=== PATIENT | male | born 1955 | race Hispanic/Latino ===

== ENCOUNTER 2021-05-24 14:53 | Emergency (ER) | payer SELFPAY ==
[~2021-05-24] VITALS: Ht 167.6 cm; Wt 77.1 kg
[2021-05-24 14:57] VITALS: BP 132/65
[2021-05-24] MEDS ORDERED: AMOX/CLAV 875/125MG TAB PO ONE (15:30)
[2021-05-24 15:46] LABS: BASOPHILS % (AUTO) 0.7 % (0.0-5.0); EOSINOPHILS % (AUTO) 6.1 % (0.0-8.0); HEMATOCRIT 43.6 % (42-54); LYMPHOCYTES % (AUTO) 31.6 % (21.0-51.0); MEAN CORPUSCULAR HEMOGLOBIN 28.4 pg (27.0-33.0); MEAN CORPUSCULAR HGB CONC 33.3 g/dL (32.0-36.0); MEAN CORPUSCULAR VOLUME 85.3 fL (79-99); MONOCYTES % (AUTO) 10.4 % (3.0-13.0); PLATELET COUNT (AUTO) 302 K/uL (130-400); RED BLOOD CELL COUNT(AUTO) 5.11 MIL/uL (4.50-6.20); RED CELL DISTRIBUTION WIDTH 13.4 % (11.0-15.5); WHITE BLOOD COUNT (AUTO) 5.6 K/uL (4.8-10.8)
[2021-05-24] MEDS ORDERED: ACETAMINOPHEN 500 MG TABLET PO ONE (16:00)
[2021-05-24 16:03] LABS: POTASSIUM 3.7 mmol/L (3.5-5.1)
[2021-05-24 16:04] LABS: ALBUMIN 3.8 g/dL (3.5-5.0); BILIRUBIN,TOTAL 0.4 mg/dL (0.2-1.0); TOTAL PROTEIN, SERUM 8.1 g/dL (6.0-8.3)
[2021-05-24] MEDS ORDERED: AMOX-429 PO (16:14)
[2021-05-24] MEDS ORDERED: ACET-2247 PO (16:14)
== END 2021-05-24 16:37 | disposition home or self-care (01) ==
LOC: EDH 14:53
DX: R59.0 Localized enlarged lymph nodes (principal)
CPT/HCPCS: 36415; 71045; 80053; 85025; 86140; 86308

== ENCOUNTER 2024-04-14 06:54 | Day surgery (SDC) | payer OTHER ==
[2024-04-13 13:24] VITALS: BP 105/77; PULSE 63; RESP 19; TEMP 97.6
[2024-04-13 13:25] LABS: BASOPHILS # (AUTO) 0.04 K/uL (0.00-0.20); BASOPHILS % (AUTO) 0.7 % (0.0-5.0); EOSINOPHILS # (AUTO) 0.22 K/uL (0.00-0.70); EOSINOPHILS % (AUTO) 3.8 % (0.0-8.0); HEMATOCRIT 41.4 % (42-54); IMMATURE GRANULOCYTE ABSOLUTE 0.02 K/uL (0-1); LYMPHOCYTES # (AUTO) 1.7 K/uL (1.0-4.8); LYMPHOCYTES % (AUTO) 29.8 % (21.0-51.0); MEAN CORPUSCULAR HEMOGLOBIN 29.6 pg (27.0-33.0); MEAN CORPUSCULAR HGB CONC 33.3 g/dL (32.0-36.0); MEAN CORPUSCULAR VOLUME 88.7 fL (79-99); MONOCYTES # (AUTO) 0.7 K/uL (0.1-1.0); MONOCYTES % (AUTO) 11.6 % (3.0-13.0); NEUTROPHILS # (AUTO) 3.1 K/uL (1.8-7.7); NEUTROPHILS % (AUTO) 53.8 % (40.0-77.0); PLATELET COUNT (AUTO) 306 K/uL (130-400); RED BLOOD CELL COUNT(AUTO) 4.67 MIL/uL (4.50-6.20); RED CELL DISTRIBUTION WIDTH 13.6 % (11.0-15.5); WHITE BLOOD COUNT (AUTO) 5.8 K/uL (4.8-10.8)
[2024-04-13 13:28] LABS: CREATININE 1.1 mg/dL (0.5-1.3)
[2024-04-13 13:33] LABS: INR 1.04 (0.85-1.15); PROTHROMBIN TIME 11.2 SEC (9.6-11.6)
[2024-04-13 13:35] LABS: PARTIAL THROMBOPLASTIN TIME 32.2 SEC (26.3-35.5)
[2024-04-14] VITALS (17 sets, daily range): BP systolic 94–126; BP diastolic 58–94; PULSE 45–71; RESP 14–18; TEMP 97.4–97.9
[~2024-04-14] VITALS: Ht 165.1 cm; Wt 82.8 kg
[~2024-04-14 06:54] MED LIST: ATOR10TA69 PO; BETA1TAB20 PO; LOSA25TA41 PO; METO-391 PO; RIVA20TA PO
[2024-04-14] MEDS: 0.9%NACL 1000ML 1,000 ML IV ONE (09:01)
[2024-04-14] MEDS: MIDAZOLAM HCL 1 MG/ML 2ML VIAL IVP ONE (09:54)
[2024-04-14] MEDS: FENTanyl CITRate PF 50 MCG/1 ML 2ML VIAL IVP ONE (09:54)
== END 2024-04-14 12:15 | disposition home or self-care (01) ==
LOC: DAH 06:54
PROVIDERS: ATTEND Internal Medicine Cardiovascular Disease
DX: I48.91 Unspecified atrial fibrillation (principal); I42.8 Other cardiomyopathies; I10 Essential (primary) hypertension; Z83.3 Family history of diabetes mellitus; Z79.01 Long term (current) use of anticoagulants; Z79.899 Other long term (current) drug therapy
CPT/HCPCS: 80048; 85025; 85610; 85730; 36415; 92960; 93005 ×2; J3010; J7030; J2250; A4615; A4215; A4223 ×3; A7002; A4222; A4221; A4663; A4216; A4606; 99152; G0500

== ENCOUNTER 2024-05-24 06:18 | Day surgery (SDC) | payer OTHER, MEDICARE ==
[2024-05-22 10:45] LABS: BASOPHILS # (AUTO) 0.04 K/uL (0.00-0.20); BASOPHILS % (AUTO) 0.8 % (0.0-5.0); EOSINOPHILS # (AUTO) 0.28 K/uL (0.00-0.70); EOSINOPHILS % (AUTO) 5.8 % (0.0-8.0); HEMATOCRIT 44.1 % (42-54); IMMATURE GRANULOCYTE ABSOLUTE 0.02 K/uL (0-1); LYMPHOCYTES # (AUTO) 1.2 K/uL (1.0-4.8); LYMPHOCYTES % (AUTO) 24.6 % (21.0-51.0); MEAN CORPUSCULAR HEMOGLOBIN 29.4 pg (27.0-33.0); MEAN CORPUSCULAR HGB CONC 32.7 g/dL (32.0-36.0); MEAN CORPUSCULAR VOLUME 90.2 fL (79-99); MONOCYTES # (AUTO) 0.4 K/uL (0.1-1.0); MONOCYTES % (AUTO) 8.5 % (3.0-13.0); NEUTROPHILS # (AUTO) 2.9 K/uL (1.8-7.7); NEUTROPHILS % (AUTO) 59.9 % (40.0-77.0); PLATELET COUNT (AUTO) 282 K/uL (130-400); RED BLOOD CELL COUNT(AUTO) 4.89 MIL/uL (4.50-6.20); RED CELL DISTRIBUTION WIDTH 13.6 % (11.0-15.5); WHITE BLOOD COUNT (AUTO) 4.8 K/uL (4.8-10.8)
[2024-05-22 10:51] VITALS: BP 126/80; PULSE 87; RESP 18; TEMP 98.1
[2024-05-22 11:10] LABS: INR 1.08 (0.85-1.15); PROTHROMBIN TIME 11.6 SEC (9.6-11.6)
[2024-05-22 11:11] LABS: PARTIAL THROMBOPLASTIN TIME 33.3 SEC (26.3-35.5); POTASSIUM 4.3 mmol/L (3.5-5.1)
[~2024-05-24] VITALS: Ht 165.1 cm; Wt 82.1 kg
[2024-05-24] VITALS (13 sets, daily range): BP systolic 101–153; BP diastolic 51–93; PULSE 42–72; RESP 16–18; TEMP 97.3–98
[~2024-05-24 06:18] MED LIST changes: +AMIO200T68 PO; -LOSA25TA41 PO
--- NOTE | 2024-05-24 06:52 | EKG ---
[facility] Test Date: 2024-05-24 Test Time: 07:20:18 Pat Name: PAWEL DUTTON Department: [facility] Room: [facility] Gender: M Executive Director: [id number] : 1955 Requested By: MATT GIL Order Number: [id number] Reading MD: Matt Gil Measurements Intervals [place] Rate: 63 P: 0 MA: 0 QRS: -6 QRSD: 109 T: 242 QT: 465 QTc: 478 Interpretive Statements Atrial fibrillation LVH with secondary repolarization abnormality Compared to ECG 04/14/2024 10:00:41 Left ventricular hypertrophy now present Early repolarization now present Sinus rhythm no longer present Intraventricular conduction delay no longer present Myocardial infarct finding no longer present Possible ischemia no longer present Electronically Signed On 05-25-2024 18:33:52 MANAGER [employer] by Matt Gil Please click the below link to view image of tracing.
[2024-05-24] MEDS: fluMAZenil 0.1MG/1ML 5ML VIAL IV SCH (07:30)
--- NOTE | 2024-05-24 08:28 | PRN ---
Procedure Note INDICATION FOR PROCEDURE: Hypercoagulable state Paroxysmal atrial fibrillation PROCEDURE: Conscious sedation Direct current cardioversion x1 at 200 joules synchronized DATE OF PROCEDURE: May 24, 2024 FINANCIAL SALES ASSOCIATE: Matt Gil MD, F.A.C.C. PROCEDURE NOTE: [] Patient was given a total of 2 mg of Versed and 50 mcg of fentanyl for IV sedation. Once patient was adequately sedated 200 joules of synchronized electricity were administered and patient returned to a normal sinus mechanism. FINDINGS: [] Successful direct current cardioversion IMPRESSION: [] Hypercoagulable state Successful direct current cardioversion Paroxysmal atrial fibrillation PLAN: [] Continue antiarrhythmic therapy Continue beta-jennifer therapy Continue anticoagulation Follow up in four weeks MATT GIL MD May 24, 2024 08:28
[2024-05-24] MEDS: 0.9%NACL 1000ML 1,000 ML IV ONE (08:55)
[2024-05-24] MEDS: FENTanyl CITRate PF 50 MCG/1 ML 2ML VIAL IVP ONE (08:56)
[2024-05-24] MEDS: MIDAZOLAM HCL 1 MG/ML 2ML VIAL IVP ONE (08:56)
--- NOTE | 2024-05-24 09:01 | EKG ---
[facility] Test Date: 2024-05-24 Test Time: 09:13:42 Pat Name: PAWEL DUTTON Department: [facility] Room: [facility] Gender: M [employer] Terminal Makeup Operator: [id number] : 1955 Requested By: MATT GIL Order Number: [id number] Reading MD: Matt Gil Measurements Intervals [place] Rate: 57 P: 39 DE: 57 QRS: -8 QRSD: 123 T: 250 QT: 552 QTc: 539 Interpretive Statements Sinus rhythm Multiple premature complexes, vent & supraven Nonspecific intraventricular conduction delay Probable lateral infarct, age indeterminate Abnrm T, consider ischemia, anterolateral lds Prolonged QT interval Electronically Signed On 05-25-2024 18:34:07 BUSINESS BANKING MANAGER by Matt Gil Please click the below link to view image of tracing.
== END 2024-05-24 10:15 | disposition home or self-care (01) ==
LOC: DAH 06:18
PROVIDERS: ATTEND Internal Medicine Cardiovascular Disease
DX: I48.0 Paroxysmal atrial fibrillation (principal); I10 Essential (primary) hypertension; I42.8 Other cardiomyopathies; Z79.01 Long term (current) use of anticoagulants; Z80.9 Family history of malignant neoplasm, unspecified; Z79.899 Other long term (current) drug therapy
CPT/HCPCS: 80048; 85025; 85610; 85730; 36415; 92960; 93005 ×2; J3010; J7030; J2250; A4215; A4223 ×3; A7002; A4222; A4221; A4663; A4216; A4606; 99152; J3490; G0500